=== PATIENT | female | born 1975 | race Caucasian/White ===

== ENCOUNTER 2021-12-01 18:58 | Emergency (ER) | payer OTHER ==
[~2021-12-01 18:58] MED LIST: AMOXICILLIN500 MG PO; BACTRIM DS1 TAB PO; LEVOTHYROXIN50 MC1 PO; NORCO1 TA1 PO; TAM75CAP PO; ZITHROMAX250 MG PO
== END 2021-12-01 19:33 | disposition left against medical advice (07) | DRG 951 ==
LOC: ED 18:58 → LWOBS 19:30
DX: Z53.21 Procedure and treatment not carried out due to patient leaving prior to being seen by health care provider (principal)

== ENCOUNTER 2021-12-01 23:10 | Emergency (ER) | payer BC ==
[~2021-12-01] VITALS: Ht 167.6 cm; Wt 81.0 kg
[2021-12-01 23:42] LABS: URINE BILIRUBIN - DIPSTICK NEGATIVE (NEGATIVE); URINE BLOOD DIPSTICK SMALL (NEGATIVE); URINE COLOR YELLOW; URINE GLUCOSE - DIPSTICK NEGATIVE (NEGATIVE); URINE KETONE >=80 mg/dL (NEGATIVE); URINE PH 5.5 (4.5-8.0); URINE PROTEIN - DIPSTICK NEGATIVE (NEG-TRACE); URINE SPECIFIC GRAVITY 1.025; URINE UROBILINOGEN - DIPSTICK 0.2 E.U./dL (0.2)
[2021-12-01 23:43] LABS: URINE NITRITE - DIPSTICK NEGATIVE (Negative)
[2021-12-01 23:44] LABS: URINE LEUK ESTERASE NEGATIVE (NEGATIVE)
[2021-12-01 23:51] LABS: URINE BACTERIA FEW hpf; URINE EPITHELIAL CELLS MANY EPI/hpf (0-FEW)
[2021-12-01 23:55] LABS: IMMATURE GRANULOCYTES 0.1 % (0.0-5.0); MEAN CELL VOLUME 94.7 fL CALC (80.0-100.0); MEAN CORPUSCULAR HGB CONC 33.8 g/dL CAL (32.0-36.0); NEUT# 10.82 thou/uL (2.00-7.15); RED BLOOD COUNT 4.19 mill/uL (4.20-5.60); RED CELL DISTRI WIDTH 14.3 % (11.5-15.5)
[2021-12-01 23:58] LABS: HEMATOCRIT 39.7 % (37.0-47.0); HEMOGLOBIN 13.4 g/dl (12.0-16.0)
[2021-12-02 00:14] LABS: ALBUMIN 3.5 g/dL (3.2-5.0); ALKALINE PHOSPHATASE 47 u/l (38-126); ANION GAP 11 (6-22 (CALC)); BUN 9 mg/dL (7-17); BUN/CREATININE RATIO 13 (12-20 (CALC)); CARBON DIOXIDE 24 mmol/l (22-30); CHLORIDE 103 mmol/l (95-108); CREATININE 0.7 mg/dL (0.5-1.0); GFR > 60 ML/MIN (>=60 (CALC)); GFR FOR AFR.AMER. > 60 ML/MIN (>=60 (CALC)); SGOT/AST 22 u/l (14-36); SODIUM 134 mmol/l (137-146); TOTAL PROTEIN 6.3 g/dL (6.3-8.2)
[2021-12-02 00:15] LABS: BILIRUBIN, TOTAL 0.5 mg/dL (0.0-1.4)
[2021-12-02 03:29] VITALS: BP 145/79
== END 2021-12-02 03:29 | disposition short-term general hospital (02) | DRG 760 ==
LOC: ED 23:10
DX: N85.9 Noninflammatory disorder of uterus, unspecified (principal); N13.1 Hydronephrosis with ureteral stricture, not elsewhere classified; Z85.3 Personal history of malignant neoplasm of breast; Z90.10 Acquired absence of unspecified breast and nipple
CPT/HCPCS: Q9967

== ENCOUNTER 2022-07-26 10:07 | Emergency (ER) | payer BC ==
[~2022-07-26] VITALS: Ht 167.6 cm; Wt 86.3 kg
[2022-07-26 10:16] VITALS: BP 145/104
[2022-07-26 10:31] VITALS: BP 122/75
[2022-07-26 10:40] LABS: HEMATOCRIT 42.3 % (37.0-47.0); HEMOGLOBIN 14.4 g/dl (12.0-16.0); IMMATURE GRANULOCYTES 0.5 % (0.0-5.0); MEAN CELL VOLUME 92.4 fL CALC (80.0-100.0); MEAN CORPUSCULAR HGB 31.4 pG CALC (26.0-32.0); NEUT# 5.83 thou/uL (2.00-7.15); RED BLOOD COUNT 4.58 mill/uL (4.20-5.60); RED CELL DISTRI WIDTH 13.9 % (11.5-15.5)
[2022-07-26 10:45] VITALS: BP 135/78
[2022-07-26 10:56] LABS: ALKALINE PHOSPHATASE 61 u/l (38-126); ANION GAP 13 (6-22 (CALC)); BILIRUBIN, TOTAL 0.5 mg/dL (0.0-1.4); BUN 16 mg/dL (7-17); BUN/CREATININE RATIO 18 (12-20 (CALC)); CARBON DIOXIDE 26 mmol/l (22-30); CHLORIDE 105 mmol/l (95-108); CREATININE 0.9 mg/dL (0.5-1.0); GFR FOR AFR.AMER. > 60 ML/MIN (>=60 (CALC)); GFR OTHER RACES > 60 ML/MIN (>=60 (CALC)); POTASSIUM 4.2 mmol/l (3.5-5.1); SGOT/AST 36 u/l (14-36); SODIUM 139 mmol/l (137-146)
[2022-07-26 11:00] LABS: ALBUMIN 4.9 g/dL (3.2-5.0); TOTAL PROTEIN 7.8 g/dL (6.3-8.2)
[2022-07-26 11:06] VITALS: BP 124/80
[2022-07-26 11:15] VITALS: BP 112/72
[2022-07-26 12:35] VITALS: BP 109/73
== END 2022-07-26 12:38 | disposition home or self-care (01) | DRG 552 ==
LOC: ED 10:07
PROVIDERS: Family Medicine
DX: M54.2 Cervicalgia (principal); M25.512 Pain in left shoulder